=== PATIENT | female | born 1975 | race Caucasian/White ===

== ENCOUNTER 2016-10-08 11:09 | Observation (INO) | payer BC, OTHER ==
[2015-05-16 21:37] VITALS: O2SAT 99
[2016-10-08] MEDS ORDERED: AMPICILLIN 1 GM PDS 2 GM in SODIUM CHLORIDE 0.9% 100 ML 100 ML IV SCH (12:00)
[2016-10-08] MEDS ORDERED: AMPICILLIN 1 GM PDS ONE ×2 (12:01→13:38)
[2016-10-08] MEDS ORDERED: CARBOPROST 250 MCG/ML SOL IM PRN (12:23)
[2016-10-08] MEDS ORDERED: FENTANYL 100MCG/2ML SOL IV PRN (12:23)
[2016-10-08] MEDS ORDERED: LACTATED RINGERS 1,000 ML IV PRN (12:23)
[2016-10-08] MEDS ORDERED: OXYTOCIN 10000 MU/ML SOL IM PRN (12:23)
[2016-10-08] MEDS ORDERED: METHYLERGONOVINE MALEATE 0.2 MG/ML SOL IM PRN (12:23)
[2016-10-08] MEDS ORDERED: MEPIVACAINE HCL 1% MPF 30 ML SOL INFIL PRN (12:23)
[2016-10-08] MEDS ORDERED: SODIUM CHLORIDE 0.9% FLUSH 10 ML SOL IV PRN (12:23)
[2016-10-08 12:30] LABS: BASOPHILS % (AUTO) 1 % (0-3); EOSINOPHILS % (AUTO) 1 % (0-9); HEMATOCRIT 34 % (35-47); MEAN CORPUSCULAR HGB CONC 35.2 gm/dl (32.0-36.0); MONOCYTES % (AUTO) 7.1 % (0-12); NEUTROPHILS % (AUTO) 65.4 % (37-80)
[2016-10-08] MEDS ORDERED: SODIUM CHLORIDE 0.9% FLUSH 10 ML SOL IV SCH (12:30)
[2016-10-08 12:31] LABS: MEAN CORPUSCULAR VOLUME 100 fL (81-99)
[2016-10-08 12:39] LABS: APPEARANCE,URINE Clear; BILIRUBIN,URINE NEGATIVE (NEGATIVE); COLOR,URINE Dark yellow; GLUCOSE, URINE (UA) NEGATIVE (NEGATIVE); KETONES,URINE NEGATIVE (NEGATIVE); LEUKOCYTE ESTERASE ,URINE NEGATIVE (NEGATIVE); NITRATE,URINE NEGATIVE (NEGATIVE); OCCULT BLOOD,URINE NEGATIVE (NEG-TRACE)
[2016-10-08 12:44] LABS: RBC,URINE 0-2 (0-3AV/HPF); WBC,URINE 0-2 (0-5AV/HPF)
[2016-10-08 12:45] LABS: AMPHETAMINES NEGATIVE (NEGATIVE); METHADONE NEGATIVE (NEGATIVE); OPIATES(OP13) NEGATIVE (NEGATIVE); OXYCODONE(OXY) NEGATIVE (NEGATIVE); PROPOXYPHENE(PPX) NEGATIVE (NEGATIVE); TRICYCLIC ANTIDEPRESSANTS NEGATIVE (NEGATIVE)
[2016-10-08 13:32] LABS: NORMAL RBCS PRESENT
[2016-10-08] MEDS ORDERED: AMPICILLIN 1 GM PDS 1 GM in SODIUM CHLORIDE 0.9% 100 ML 100 ML IV SCH (15:48)
[2016-10-08 18:59] VITALS: BP 142/69; PULSE 67; RESP 16; TEMP 97.1
== END 2016-10-08 14:45 | disposition short-term general hospital (02) ==
LOC: OB 11:09
PROVIDERS: ADMIT Family Medicine; ATTEND Family Medicine
DX: O42.913 Preterm premature rupture of membranes, unspecified as to length of time between rupture and onset of labor, third trimester (principal); Z3A.35 35 weeks gestation of pregnancy; O99.820 Streptococcus B carrier state complicating pregnancy
CPT/HCPCS: 36415; 80305; 81001; 84112; 85025; J0290 ×2; 59025

== ENCOUNTER 2018-06-24 00:21 | Emergency (ER) | payer BC, OTHER ==
[2018-06-24 00:21] VITALS: O2SAT 99
[2018-06-24 00:26] VITALS: BP 130/91; PULSE 60; RESP 18; TEMP 98.6
[2018-06-24] MEDS ORDERED: DIPHENHYDRAMINE 25 MG CAP PO ONE (01:17)
[2018-06-24] MEDS ORDERED: DIPHENHYDRAMINE 25 MG CAP ONE (01:18)
[2018-06-24 01:19] LABS: BASOPHILS % (AUTO) 1 % (0-3); EOSINOPHILS % (AUTO) 1 % (0-9); HEMATOCRIT 36 % (35-47); HEMOGLOBIN 11.9 gm/dl (12.0-15.5); LYMPHOCYTES % (AUTO) 31.8 % (10-50); MEAN CORPUSCULAR HEMOGLOBIN 31.6 pg (27.0-32.0); MEAN CORPUSCULAR HGB CONC 32.7 gm/dl (32.0-36.0); MEAN CORPUSCULAR VOLUME 97 fL (81-99); MONOCYTES % (AUTO) 6.5 % (0-12); NEUTROPHILS % (AUTO) 59.9 % (37-80)
[2018-06-24 01:25] LABS: APPEARANCE,URINE Clear; BILIRUBIN,URINE NEGATIVE (NEGATIVE); COLOR,URINE Yellow; GLUCOSE, URINE (UA) NEGATIVE (NEGATIVE); KETONES,URINE NEGATIVE (NEGATIVE); LEUKOCYTE ESTERASE ,URINE TRACE (NEGATIVE); NITRATE,URINE NEGATIVE (NEGATIVE); OCCULT BLOOD,URINE NEGATIVE (NEG-TRACE); PH,URINE 6.5; UROBILINOGEN,URINE 0.2 (0.2-1.0 EU)
[2018-06-24 01:36] LABS: AMPHETAMINES NEGATIVE (NEGATIVE); BACTERIA TRACE (< 1+); BARBITUATES NEGATIVE (NEGATIVE); BENZODIAZEPINES NEGATIVE (NEGATIVE); CANNABINOL(THC) POSITIVE (NEGATIVE); COCAINE(COC) NEGATIVE (NEGATIVE); CRYSTALS NEGATIVE (0-3 AVE/HPF); METHADONE NEGATIVE (NEGATIVE); METHAMPHETAMINES NEGATIVE (NEGATIVE); OPIATES(OPI) NEGATIVE (NEGATIVE); OXYCODONE(OXY) NEGATIVE (NEGATIVE); PROPOXYPHENE(PPX) NEGATIVE (NEGATIVE); RBC,URINE 0-1 (0-3AV/HPF); TRICYCLIC ANTIDEPRESSANTS NEGATIVE (NEGATIVE)
[2018-06-24 01:38] LABS: ALBUMIN 3.4 gm/dl (3.4-5.0); BILIRUBIN,TOTAL 0.2 mg/dl (0.2-1.0); CALCIUM 8.3 mg/dl (8.5-10.1); CARBON DIOXIDE 27.3 mEq/L (21-32); CREATININE 0.68 mg/dl (0.60-1.00); POTASSIUM 3.8 mMol/L (3.5-5.1); THYROID STIMULATING HORMONE 2.647 uIU/ml (0.358-3.740); TOTAL PROTEIN 6.3 gm/dl (6.4-8.2)
[2018-06-24 01:39] LABS: ALCOHOL 0.003 gm/dl (0.000-0.08)
== END 2018-06-24 04:55 | disposition short-term general hospital (02) | DRG 885 ==
LOC: ED 00:21
DX: F29 Unspecified psychosis not due to a substance or known physiological condition (principal); R46.2 Strange and inexplicable behavior; F22 Delusional disorders; F12.90 Cannabis use, unspecified, uncomplicated; Z79.899 Other long term (current) drug therapy
CPT/HCPCS: 36415; 80053; 80305; 80307; 81001; 84443; 84703; 85025; 99282; 99283; A9270-GY